=== PATIENT | female | born 1980 | race Two or more races ===

== ENCOUNTER 2019-11-12 10:53 | Outpatient (CLI) | payer BC ==
[2019-11-12 13:09] LABS: BASOPHILS % (AUTO) 0.7 % (0.0-2.0); HEMATOCRIT 40 % (33-45); HEMOGLOBIN 13.1 g/dL (11.5-14.8); LYMPHOCYTES % (AUTO) 36.4 % (20.0-44.0); MEAN CORPUSCULAR HGB CONC 33 g/dl (31.0-36.0); MEAN CORPUSCULAR VOLUME 93 fL (82-100); MONOCYTES # (AUTO) 0.4 /CMM (0.1-1.30); MONOCYTES % (AUTO) 6.7 % (2.0-12.0); NEUTROPHILS % (AUTO) 55.2 % (43.0-81.0); PLATELET COUNT (AUTO) 226 /CMM (150-450); WHITE BLOOD COUNT (AUTO) 5.5 K/uL (4.3-11.0)
[2019-11-12 13:30] LABS: C-REACTIVE PROTEIN 0.9 mg/dL (0.0-0.9)
[2019-11-12 13:37] LABS: ALBUMIN 4.1 g/dL (3.4-5.0); BILIRUBIN,TOTAL 0.8 mg/dL (0.2-1.0); CALCIUM, SERUM 8.6 mg/dL (8.5-10.1); CREATININE 0.6 mg/dL (0.6-1.3); POTASSIUM 3.7 mmol/L (3.5-5.1); TOTAL PROTEIN, SERUM 7.9 g/dL (6.4-8.2)
== END 2019-11-12 23:59 | disposition home or self-care (01) ==
LOC: MSC 10:53
PROVIDERS: ATTEND Internal Medicine
DX: F43.10 Post-traumatic stress disorder, unspecified (principal); Y99.0 Civilian activity done for income or pay
CPT/HCPCS: 36415; 80053-TC; 85025-TC; 85652-TC; 86140-TC

== ENCOUNTER 2020-04-27 11:35 | Outpatient (CLI) | payer BC ==
[2020-04-27 12:41] LABS: BASOPHILS % (AUTO) 0.5 % (0.0-2.0); EOSINOPHILS % (AUTO) 1.9 % (0.0-6.0); HEMATOCRIT 41 % (33-45); HEMOGLOBIN 13.4 g/dL (11.5-14.8); LYMPHOCYTES # (AUTO) 1.6 /CMM (0.8-4.8); LYMPHOCYTES % (AUTO) 32.3 % (20.0-44.0); MEAN CORPUSCULAR HGB CONC 33 g/dl (31.0-36.0); MEAN CORPUSCULAR VOLUME 93 fL (82-100); MONOCYTES # (AUTO) 0.3 /CMM (0.1-1.30); MONOCYTES % (AUTO) 6.8 % (2.0-12.0); NEUTROPHILS # (AUTO) 2.9 /CMM (1.8-8.9); NEUTROPHILS % (AUTO) 58.5 % (43.0-81.0); PLATELET COUNT (AUTO) 258 /CMM (150-450)
[2020-04-27 13:22] LABS: ALBUMIN 3.9 g/dL (3.4-5.0); BILIRUBIN,TOTAL 0.8 mg/dL (0.2-1.0); CALCIUM, SERUM 8.8 mg/dL (8.5-10.1); CREATININE 0.6 mg/dL (0.6-1.3); MAGNESIUM 2.3 mg/dL (1.8-2.4); PHOSPHORUS 3.4 mg/dL (2.5-4.9)
[2020-04-27 14:17] LABS: C-REACTIVE PROTEIN 0.2 mg/dL (0.0-0.9); FREE T4 (FREE THYROXINE) 1.15 ng/dL (0.76-1.46); THYROID STIMULATING HORMONE 2.513 uIU/mL (0.358-3.74)
== END 2020-04-27 23:59 | disposition home or self-care (01) ==
LOC: MSC 11:35
PROVIDERS: ATTEND Internal Medicine
DX: U07.1 COVID-19 (principal); R43.9 Unspecified disturbances of smell and taste
CPT/HCPCS: 36415; 80053-TC; 80061-TC; 83735-TC; 84100-TC; 84439-TC; 84443-TC; 85025-TC; 85652-TC; 86140-TC

== ENCOUNTER 2020-08-03 10:28 | Outpatient (CLI) | payer BC | END 2020-08-03 23:59 | disposition home or self-care (01) | LOC: MSC 10:28 | PROVIDERS: ATTEND Internal Medicine | DX: F32.89 Other specified depressive episodes (principal); F41.9 Anxiety disorder, unspecified; R05 Cough; Z86.16 Personal history of COVID-19; Z56.6 Other physical and mental strain related to work; Z79.1 Long term (current) use of non-steroidal anti-inflammatories (NSAID); Z79.899 Other long term (current) drug therapy ==